=== PATIENT | female | born 1960 | race Two or more races ===

== ENCOUNTER 2020-08-18 07:00 | Day surgery (SDC) | payer OTHER ==
[~2020-08-18 07:00] MED LIST: ATACAND32 MG PO; ATORVASTATIN CA10 MG PO; BUSPIRONE PO; FORTAMET1000 MG PO; HUMLOG; LANTUS; OMEGA PO; PAXIL30 MG PO; SUPER B-50 COM1 EACH PO; SYNTHROID175 MCG PO; TRULIC
== END 2020-08-18 16:45 | disposition home or self-care (01) ==
LOC: CIR.AMB 07:00
PROVIDERS: ATTEND Urology
DX: N20.1 Calculus of ureter (principal); Z20.822 Contact with and (suspected) exposure to COVID-19